=== PATIENT | female | born 1975 | race Hispanic/Latino ===

== ENCOUNTER 2024-01-05 09:38 | Emergency (ER) | payer OTHER, SELFPAY ==
[2024-01-05 09:44] VITALS: BP 120/83
[2024-01-05 10:08] LABS: % Basophils 0.8 % (0-2); % Eosinophils 0.9 % (0-6); % Immature Granulocytes 0.4 % (0-0.5); % Monocytes 7.6 % (1.7-9.3); % Neutrophils 74.3 % (42.2-75.2); Absolute Basophils 0.1 10^3/uL (0-0.2); Absolute Eosinophils 0.1 10^3/uL (0-0.7); Absolute Lymphocytes 1.5 10^3/uL (1.2-3.4); Absolute Monocytes 0.7 10^3/uL (0.1-0.6); Absolute Neutrophils 6.8 10^3/uL (1.4-6.5); Hematocrit 36.6 % (37.0-47.0); Hemoglobin 12.6 g/dL (12.0-16.0); Mean Corp Hgb Conc. 34.4 g/dL (33.0-37.0); Mean Corpuscular Hgb 31.8 pg (27.0-31.0); Mean Corpuscular Volume 92.4 fL (81.0-99.0); Mean Platelet Volume 9.3 fL (7.4-10.4); Nucleated Red Blood Cells % 0 %; Platelet Count 311 10^3/uL (130-400); Red Blood Cell Count 3.96 10^6/uL (4.20-5.40); White Blood Cell Count 9.1 10^3/uL (4.8-10.8)
[2024-01-05 10:26] LABS: ALT (SGPT) 31 U/L (0-35); AST (SGOT) 29 U/L (14-36); Albumin 4.6 g/dl (3.5-5.0); Alkaline Phosphatase 56 U/L (38-126); Blood Urea Nitrogen 12 mg/dl (7-17); Calcium 9.6 mg/dl (8.4-10.2); Carbon Dioxide 26 mmol/L (22-30); Chloride 103 mmol/L (98-107); Glucose 148 mg/dl (70-99); Lipase 42 U/L (23-300); Potassium 4.7 mmol/L (3.5-5.1); Sodium 135 mmol/L (135-145); Total Bilirubin 0.9 mg/dl (0.2-1.3); Total Protein 7.4 g/dl (6.3-8.2); eGFR > 60.00
--- NOTE | 2024-01-05 10:53 | ED.GENMED ---
History of Present Illness
<Kathrin Noriega PA-C - Last Filed: 01/05/24 23:40>
General
Chief Complaint: Abdominal Pain
Source: patient
Exam Limitations: none
Time Seen by Provider: 01/05/24 10:32
Nursing documentation reviewed up to this point in time: agreed with
Travel History
Have you had any contact with someone who has COVID-19?: No
Do you have any symptoms of coronavirus? Fever > 100 degrees, chills, cough, shortness of breath, sore throat, loss of taste or smell, muscle aches, or headache?: No
History of Present Illness
History of Present Illness:
Patient is a 40-year-old female with no significant past medical history presenting for evaluation of acute onset lower abdominal pain. Patient states pain woke her up this morning from sleep around 4:30 AM and was located in her lower abdomen.
Pain was sharp and constant for a few hours. She was seen in urgent care where they performed a urinalysis which showed no signs of infection. They referred her to the emergency department for further evaluation and to rule out appendicitis. At
this time patient does report that pain somewhat improved from what it was this morning. She denies any associated fever, chills, nausea, vomiting, diarrhea, constipation. Her appetite has been normal.
Of note�patient does report some suprapubic pain with urination yesterday and today. She denies any urinary frequency. She denies any history of kidney stones.
Patient does have a history of cholecystectomy many years ago. Social alcohol drinking.
Patient is currently on her menstrual period.
Phy Exam
<Kathrin Noriega PA-C - Last Filed: 01/05/24 23:40>
Physical Exam
Physical Exam:
General: In no apparent distress, nontoxic appearing
Vitals: Vital signs stable, patient afebrile
HEENT: Atraumatic, normocephalic; pupils equal round and reactive light bilaterally protecting airway
Neck: appears supple, no meningeal signs
CV: Regular rate and rhythm, heart sounds normal, no evidence of cyanosis
Resp: No evidence of respiratory distress, lungs clear bilaterally
Abd: Soft, moderately tender in lower abdomen without rebound or guarding, nondistended; no CVA tenderness
Extremities: No deformities, no evidence of cyanosis or edema
Neuro: alert and oriented; grossly intact
Psych: Normal affect
Skin: Intact, no rashes
Course
<Kathrin Noriega PA-C - Last Filed: 01/05/24 23:40>
Orders/Labs/Results
Orders:
Orders
01/05/24 10:01
Complete Blood Count/With Diff Urgent
Comprehensive Metabolic Panel Urgent
HCG, Serum Qualitative Screen Urgent
Comment: ADD ON
Lipase Urgent
01/05/24 10:53
Add On- LAB Urgent
Tests Added?: serum qual hcg
01/05/24 11:04
0.9% Sodium Chloride 1000 ml [Nss] 1,000 ml IV BOLUS
US Abdomen - Appendix Only Urgent
Comment:
Reason For Exam: lower abdominal pain
US Pelvis [US Pelvis Only (non-obstetric)] Urgent
Comment:
Reason For Exam: lower abdominal pain
US Renal With Bladder Urgent
Comment:
Reason For Exam: lower abdominal pain
01/05/24 11:10
CT Abd/pel W Iv And Oral Contr Urgent
Comment: hx cholecystectomy
Reason For Exam: Lower abdominal pain
Iohexol [Omnipaque] See Protocol PO NOW STA
01/05/24 14:49
US Pelvis Transvaginal Only Urgent
Comment:
Reason For Exam: Pelvic pain. Evaluate for ovarian flow
Abnormal Lab Results
01/05/24
10:01
RBC 3.96 L 10^6/uL
(4.20-5.40)
Hct 36.6 L %
(37.0-47.0)
MCH 31.8 H pg
(27.0-31.0)
Absolute Neuts (auto) 6.8 H 10^3/uL
(1.4-6.5)
Absolute Monos (auto) 0.7 H 10^3/uL
(0.1-0.6)
Lymphocytes % 16.0 L %
(20.5-51.1)
Glucose 148 H mg/dl
(70-99)
01/05/24 10:01
01/05/24 10:01
Vital Signs
Initial and Last Documented VS:
Initial Vital Signs
Temp Pulse Resp BP Pulse Ox
98.4 F 92 16 120/83 100
01/05/24 09:44 01/05/24 09:44 01/05/24 09:44 01/05/24 09:44 01/05/24 09:44
Last Documented Vital Signs
Temp Pulse Resp BP Pulse Ox
98.4 F 92 16 120/83 100
01/05/24 09:44 01/05/24 09:44 01/05/24 09:44 01/05/24 09:44 01/05/24 09:44
<Seb Fernandez MD - Last Filed: 01/05/24 12:34>
Orders/Labs/Results
Orders:
Orders
01/05/24 10:01
Complete Blood Count/With Diff Urgent
Comprehensive Metabolic Panel Urgent
HCG, Serum Qualitative Screen Urgent
Comment: ADD ON
Lipase Urgent
01/05/24 10:53
Add On- LAB Urgent
Tests Added?: serum qual hcg
01/05/24 11:04
0.9% Sodium Chloride 1000 ml [Nss] 1,000 ml IV BOLUS
US Abdomen - Appendix Only Urgent
Comment:
Reason For Exam: lower abdominal pain
US Pelvis [US Pelvis Only (non-obstetric)] Urgent
Comment:
Reason For Exam: lower abdominal pain
US Renal With Bladder Urgent
Comment:
Reason For Exam: lower abdominal pain
01/05/24 11:10
CT Abd/pel W Iv And Oral Contr Urgent
Comment: hx cholecystectomy
Reason For Exam: Lower abdominal pain
Iohexol [Omnipaque] See Protocol PO NOW STA
01/05/24 14:49
US Pelvis Transvaginal Only Urgent
Comment:
Reason For Exam: Pelvic pain. Evaluate for ovarian flow
Abnormal Lab Results
01/05/24
10:01
RBC 3.96 L 10^6/uL
(4.20-5.40)
Hct 36.6 L %
(37.0-47.0)
MCH 31.8 H pg
(27.0-31.0)
Absolute Neuts (auto) 6.8 H 10^3/uL
(1.4-6.5)
Absolute Monos (auto) 0.7 H 10^3/uL
(0.1-0.6)
Lymphocytes % 16.0 L %
(20.5-51.1)
Glucose 148 H mg/dl
(70-99)
01/05/24 10:01
01/05/24 10:01
Vital Signs
Initial and Last Documented VS:
Initial Vital Signs
Temp Pulse Resp BP Pulse Ox
98.4 F 92 16 120/83 100
01/05/24 09:44 01/05/24 09:44 01/05/24 09:44 01/05/24 09:44 01/05/24 09:44
Last Documented Vital Signs
Temp Pulse Resp BP Pulse Ox
98.4 F 92 16 120/83 100
01/05/24 09:44 01/05/24 09:44 01/05/24 09:44 01/05/24 09:44 01/05/24 09:44
<Kathrin Noriega PA-C - Last Filed: 01/05/24 23:40>
MDM/Problems Addressed
Differential Diagnosis Includes:
Appendicitis, diverticulitis, cystitis, pyelonephritis, ruptured ovarian cyst, ovarian torsion,
MDM/Problems Addressed:
Patient is 48 year old female presenting with acute onset lower abdominal pain x 1 day. No fever or chills. Sent by to r/o appendicitis. Exam as above. Very well appearing. Abdomen is soft but moderately tender to palpation in lower abdomen. No
CVA tenderness. Vitals stable. Labs noted. No clinically significant abnormalities. negative. Clinical suspicon for torsion is low but given acute onset pelvic pain will start with pelvic US to r/u torsion/ other ovarian pathology. Will
check US appendix and kidney. If negative - plan for CT of abdomen/pelvis. Patient very well appearing - denies analgesia at this time. UA was performed at urgent care prior to arrival. I have reviewed results which show no evidence of infection,
hematuria but nonspecific given patients menses.
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 Unclear if may be related to patients symptoms. US appendix and kidney without any abnormalities. Will proceed with CT scan to ensure no
appendicitis/diverticulitis
Although clinical suspicion for torsion extremely low- will send back for repeat scan after CT scan to ensure blood flow visualized to both ovaries.
CT shows similar findings to pelvic US without any other acute intra-abdominal process to explain symptoms.
Blood flow documented to both right and left ovary.
No indication for admission or further imaging at this time. Discussed with OBGYN who will see her in office for follow-up. She remains stable, essentially pain free. Return precautions discussed. Patient comfortable with plan. All questions
answered.
Chronic conditions affecting care:
N/A
Acute Exacerbation and/or Progression of Chronic Illness:
N/A
<Kathrin Noriega PA-C - Last Filed: 01/05/24 23:40>
*Radiology
Radiology exam reviewed: preliminary read by ED provider and radiology read reviewed
*Pulse Oximetry
Patient hypoxic: no
*Physical Therapist Interpretation
Rate: Physical Therapist- N/A
*Critical Care Note
Total Time (30-74mins, 75-104mins- exclusive of procedures): Not Applicable
<Kathrin Noriega PA-C - Last Filed: 01/05/24 23:40>
Patient Management
Discussion with other providers: [employer] (OBGYN)
ED Attending Note
<Kathrin Noriega PA-C - Last Filed: 01/05/24 23:40>
-
Portions of this chart may have been created with voice recognition software.� Occasional wrong word or��sound alike� substitutions may have occurred due to the inherent limitations of voice recognition software.
<Seb Fernandez MD - Last Filed: 01/05/24 12:34>
ED Attending Note
Patient seen and examined by attending physician: Yes
I performed the substantive portion of visit, reviewed & personally made and approve the management plan that is documented in note by myself or KAMARI.: Yes
ED Attending Note:
48-year-old female relatively sudden onset lower abdominal pain. Points to diffusely lower abdomen. Some vague mild discomfort yesterday. No fever. Some urinary urgency briefly yesterday. No nausea or vomiting. Pain has improved moderately.
On exam patient is nontoxic in no distress. Warm and dry. Grossly nonfocal. Ambulating well. No respiratory distress. Abdomen soft. Diffuse mild but reproducible lower abdominal tenderness.
Differential includes kidney stone, ovarian issue cyst. Doubt ovarian torsion clinically. Appendicitis or diverticulitis. Workup in progress
Discharge Plan
Departure
Patient Disposition: Home (Routine Discharge)
Date of Disposition: 01/05/24
Time of Disposition: 16:19
Patient with high blood pressure during this ER visit?: No
Condition: Good
Covid-19: Not Applicable
Discharge Problem:
Abdominal pain
Instructions: Pelvic Pain (DC), Abdominal Pain, Adult ED
Referrals:
Asiya Loya MD [Family Provider] -
Bay Srivastava MD [Active] - Follow up in 1 week
Activity Restrictions/Additional Instructions:
- Return to the emergency department any high fevers, severe abdominal pain, intractable nausea/vomiting, severe pelvic pain, persistent vaginal bleeding, worsening current symptoms, or any other concern
-You can take Motrin/Tylenol as needed for discomfort
-As discussed�you should follow-up with your [employer] in the next week or so for further evaluation. They should be calling to schedule an appointment shortly
Interventions
Interventions:
*Risk Screen - Suicide Last Done: 01/05/24 09:44
*General Assessment Last Done: 01/05/24 09:44
*Neglect/Abuse Screening Last Done: 01/05/24 09:44
ED- Fall Risk Assessment Last Done: 01/05/24 17:20
*Nursing Disposition Last Done: 01/05/24 17:20
JN-[id number]-Mpvwxniamf Assessment Last Done: 01/05/24 12:38
Discharge Date and Time
Discharge Date/Time: 01/05/24 17:21
Print Language: ALBANIAN
[2024-01-05 11:20] LABS: HCG, Serum Qualitative Screen Negative
[2024-01-05] MEDS: OMNIPAQUE 50 ML PO (11:34)
[2024-01-05] MEDS: NSS 1000 IV (11:37)
== END 2024-01-05 17:21 | disposition home or self-care (01) ==
LOC: EMR 09:38
PROVIDERS: Emergency Medicine; EMERGENCY PHYSICIAN Emergency Medicine; FAMILY PHYSICIAN Emergency Medicine
DX: R10.30 Lower abdominal pain, unspecified (principal); R10.2 Pelvic and perineal pain; D25.9 Leiomyoma of uterus, unspecified; Z90.49 Acquired absence of other specified parts of digestive tract
CPT/HCPCS: 99285; 96360; 74177; 76705; 76770; 76830; 76856; 80053; 83690; 84703; 85025; Q9967

== ENCOUNTER → 2024-01-26 16:06 | Outpatient (REF) | payer OTHER, SELFPAY | LOC: WDC 16:06 | PROVIDERS: ATTENDING PHYSICIAN Obstetrics & Gynecology; FAMILY PHYSICIAN Emergency Medicine | DX: Z12.31 Encounter for screening mammogram for malignant neoplasm of breast (principal) | CPT/HCPCS: 77063; 77067 ==

== ENCOUNTER → 2024-09-19 10:27 | Outpatient (REF) | payer OTHER, SELFPAY | LOC: RAD 10:27 | PROVIDERS: ATTENDING PHYSICIAN Obstetrics & Gynecology; FAMILY PHYSICIAN Emergency Medicine | DX: D27.0 Benign neoplasm of right ovary (principal); M54.50 Low back pain, unspecified | CPT/HCPCS: 72110; 76830; 76856 ==

== ENCOUNTER → 2025-01-26 16:05 | Outpatient (REF) | payer OTHER, SELFPAY | LOC: WDC 16:05 | PROVIDERS: ATTENDING PHYSICIAN Obstetrics & Gynecology; FAMILY PHYSICIAN Emergency Medicine | DX: Z12.31 Encounter for screening mammogram for malignant neoplasm of breast (principal) | CPT/HCPCS: 77063; 77067 ==